=== PATIENT | male | born 1950 | race African-American/Black ===

== ENCOUNTER 2016-10-06 08:42 | Emergency (ER) ==
--- NOTE | 2016-10-06 10:08 | PROVIDER DOCUMENTATION ---
HPI-Male Problem - General Source: patient - History of Present Illness-Male Location of Complaint: reports: suprapubic, right flank Radiation: reports: right flank Quality of Pain: reports: cramping, fullness Severity in ED: reports: mild Onset/Duration: reports: 4-6 hours ago Timing: reports: still present Urinary Symptoms: reports: dribbling, retention, low back pain Similar Symptoms Previously?: No Recently seen or treated by another doctor?: No <Stephanie Donovan - Last Filed: 10/06/16 11:40> <Shiv Bustillos I - Last Filed: 10/06/16 12:18> - General Chief Complaint: UTI Symptoms Stated Complaint: LOWER ABD PAIN Time Seen by Provider: 10/06/16 10:00 Allergies/Adverse Reactions: Patient Allergies Allergy/AdvReac Type Severity Reaction Status Date / Time No Known Allergies Allergy Verified 10/06/16 09:17 Home Medications: Home Medication List Medication Instructions Recorded Confirmed Last Taken Type Aspirin [Aspirin EC] 81 mg PO QAM 03/15/16 10/06/16 10/05/16 History Glimepiride 2 mg PO DAILY 03/15/16 10/06/16 10/05/16 History Losartan Potassium 100 mg PO DAILY 03/15/16 10/06/16 10/05/16 History Magnesium Oxide 400 mg PO DAILY 03/15/16 10/06/16 10/05/16 History Metformin [Glucophage] 500 mg PO BID CC 03/15/16 10/06/16 10/05/16 History Metoprolol Succinate 25 mg PO DAILY 03/15/16 10/06/16 10/05/16 History Pioglitazone HCl 15 mg PO DAILY 03/15/16 10/06/16 10/05/16 History Hydrocodone/APAP 7.5 mg/325 mg 1 each PO Q6H PRN PRN #10 tablet 10/06/16 Unknown Rx [[place]-7.5] Sulfamethoxazole/Trimethoprim 1 each PO BID #42 tablet 10/06/16 Unknown Rx [Bactrim Ds Tablet] - History of Present Illness-Male Nature of Presenting Problem: Pt is a 66 yom who came to the ED with a cc of urinary retention. Pt reports he woke up last night doubled over with abdominal pain and a feeling he had to urinate, when he did only a few drops came out and it burned when he peed. Pt reports he has a hx of kidney stones. (Stephanie Donvoan) Review of Systems - Adult - REVIEW OF SYSTEMS - ADULT Constitutional: denies: chills, fever Eyes: denies: decreased vision, double vision Ears, Nose, Mouth & Throat: reports: no symptoms reported Cardiovascular: reports: no symptoms reported Respiratory: reports: no symptoms reported Gastrointestinal: reports: abdominal pain. denies: diarrhea, nausea, vomiting Genitourinary: reports: flank pain (right), urinary retention. denies: hematuria, hesitency Musculoskeletal: reports: no symptoms reported Integumentary: reports: no symptoms reported Neurological: denies: numbness, paresthesia Psychiatric: reports: no symptoms reported Endocrine: reports: no symptoms reported Hematologic/Lymphatic: reports: no symptoms reported Allergic/Immunologic: reports: no symptoms reported All Other Systems: Reviewed and Negative <Stephanie Donovan - Last Filed: 10/06/16 11:40> Past History - Adult - PAST MEDICAL HISTORY-ADULT Review of Records: reports: Old Records Reviewed, Nursing Assessment Review Major Childhood Illnesses: reports: denies history Cardiovascular: reports: HTN Respiratory: reports: denies history Gastrointestinal: reports: denies history Obstetrical/Gynecological: reports: denies history Genitourinary: reports: kidney stones Musculoskeletal: reports: denies history Neurological: reports: denies history Endocrine/Immune: reports: Diabetes Other Conditions: reports: denies history - PRIOR SURGERIES/PROCEDURES Surgical/Procedure History: reports: other (heart cath ) - IMMUNIZATION STATUS Childhood Immunizations: See Nurse Assessment Flu Vaccine: See Nurse Assessment - FAMILY HISTORY Family History: reviewed, not pertinent <Stephanie Donovan - Last Filed: 10/06/16 11:40> Physical Exam-General - PHYSICAL EXAM-ADULT Initial Vital Signs Reviewed: Yes - CONSTITUTIONAL General Appearance: alert, no apparent distress - EYES Eyes: PERRL/EOMI, pink conjunctivae, fundi clear, no AV nicking - HEAD, EARS, NOSE, MOUTH & THROAT HENMT: normocephalic/atraumatic, moist mucous membranes, normal ENT inspection, TMs normal, pharynx normal - NECK Neck: non-tender - RESPIRATORY Respiratory: chest non-tender, lungs clear, normal breath sounds, no pleuratic chest pain, no respiratory distress, no accessory muscle use - CARDIOVASCULAR Cardiovascular: normal peripheral pulses, regular rate, rhythm, no edema, no gallop, no JVD, no murmur - GASTROINTESTINAL (ABDOMEN) Abdominal Exam: normal bowel sounds, tenderness (suprapubic and right flank) - MUSCULOSKELETAL Back Exam: normal inspection, no CVA tenderness, no vertebral tenderness Extremity: normal range of motion - SKIN Integumentary: normal color, normal turgor - NEUROLOGIC Neurologic: grossly normal - PSYCHIATRIC Psych/Mental Status: normal mood/affect, normal thought content, normal thought process, oriented x 3 <Stephanie Donovan - Last Filed: 10/06/16 11:40> Progress - CT/MRI 1 CT Study: Abdomen (2mm caliceal stone periprostatic stranding, possible prostatitis.) CT Results: Fullness of rt collecting system without apparent ureteral stone <Stephanie Donovan - Last Filed: 10/06/16 11:40> <Shiv Bustillos I - Last Filed: 10/06/16 12:18> - PLAN OF CARE/RESULTS Progress/Plan/Lab Results: Vital Signs - 24 hr 10/06/16 08:53 Temperature 99.9 F H Pulse Rate 114 H Respiratory 20 Rate Blood Pressure 202/84 O2 Sat by Pulse 99 Oximetry Orders Category Date Time Status Saline Loc DIRECTED Care 10/06/16 10:31 Active NPO Diet 10/06/16 10:31 Active RENAL STONE SEARCH [CT] Stat Exams 10/06/16 10:32 Taken AMYLASE [CHEM] Stat Lab 10/06/16 10:45 Received CBC WITH ELECTRONIC DIFF [HEME] Stat Lab 10/06/16 10:45 Completed COMPREHENSIVE METABOLIC PANEL [CHEM] Stat Lab 10/06/16 10:45 Received LIPASE [CHEM] Stat Lab 10/06/16 10:45 Received URINALYSIS W/POSS RFLX CULT [URINALYSIS] Stat Lab 10/06/16 10:30 Completed URINE CULTURE [RM] Routine Lab 10/06/16 11:05 Received 0.9% Sodium Chloride Inj [Ns] 1,000 ml Med 10/06/16 10:32 Discontinued IV 999 mls/hr Hydromorphone [Dilaudid] Med 10/06/16 10:32 Discontinued 1 mg IV NOW ONE Ondansetron [Zofran] Med 10/06/16 10:32 Discontinued 4 mg IV NOW ONE Laboratory Tests 10/06/16 10/06/16 10:30 10:45 WBC 22.87 H RBC 4.04 L Hgb 12.7 L Hct 37.3 L MCV 92.3 MCH 31.4 H MCHC 34.0 RDW Std Deviation 12.2 Plt Count 303 MPV 10.6 H Immature Gran % (Auto) 0.4 Neut % (Auto) 84.8 H Lymph % (Auto) 6.7 L [place] % (Auto) 8.0 Eos % (Auto) 0.0 Baso % (Auto) 0.1 Immature Gran # (Auto) 0.09 H Neut # (Auto) 19.40 H Lymph # (Auto) 1.53 [place] # (Auto) 1.82 H Eos # (Auto) 0.00 Baso # (Auto) 0.03 Urine Source CLEAN CATCH Urine Color YELLOW Urine Turbidity HAZY Urine pH 6.5 Ur Specific [place] 1.023 Urine Protein 200 A Ur Glucose (Stick) 300 A Ur Ketones (Stick) 10 A Urine Blood MODERATE A Urine Nitrite NEGATIVE Urine Bilirubin NEGATIVE Urobilinogen Dipstick NORMAL Urine Leukocytes LARGE A Urine WBC (Auto) TNTC A Urine RBC (Auto) 10-20 A U Epithel Cells (Auto) <10 Urine Bacteria (Auto) 4+ (Stephanie Donovan) Departure <Stephanie Donovan - Last Filed: 10/06/16 11:40> - Departure Time of Disposition Order: 12:13 Certified Medical Emergency: Emergent <Shiv Bustillos I - Last Filed: 10/06/16 12:18> - Departure DIAGNOSIS: Prostatitis, acute Disposition: HOME 01 Condition: Stable Additional Instructions: Please call and make appointment with Dr. Esparza. Prescriptions: Sulfamethoxazole/Trimethoprim [Bactrim Ds Tablet] 1 each PO BID #42 tablet Hydrocodone/APAP 7.5 mg/325 mg [[place]-7.5] 1 each PO Q6H PRN PRN #10 tablet PRN Reason: Pain Referrals: Bhavesh Fountain MD [Primary Care Provider] - Jacob Esparza MD [STAFF PHYSICIAN] - Attestation - Scribe Verification/Attestation Scribe:: Stephanie Donovan Acting as Scribe for:: Shiv Bustillos Scribe documention review:: This chart was documented by a scribe and accurately reflects the service the provider performed and the decisions made by the provider. <Stephanie Donovan - Last Filed: 10/06/16 11:40> Physician Attestation - Physician Attestation I, the provider, attest to the following statement:: Shiv Bustillos Physician documentation Attestation:: This documentation recorded by the scribe accurately reflects the service I personally performed and the decisions made by me. <Shiv Bustillos I - Last Filed: 10/06/16 12:18>
[2016-10-06] MEDS ORDERED: ZOFRAN IV ONE (10:32)
[2016-10-06] MEDS ORDERED: DILAUDID IV ONE (10:32)
[2016-10-06] MEDS ORDERED: NS 1,000 ML IV ONE (10:32)
[2016-10-06 10:55] LABS: URINE MICRO REVIEW NEEDED? NO; URINE SOURCE CLEAN CATCH
[2016-10-06 11:03] LABS: BILIRUBIN URINE NEGATIVE (NEGATIVE); BLOOD URINE MODERATE (NEGATIVE); COLOR YELLOW; GLUCOSE URINE 300 mg/dL (NEGATIVE); LEUKOCYTES URINE LARGE (NEGATIVE); NITRITE URINE NEGATIVE (NEGATIVE); PH URINE 6.5; PROTEIN URINE 200 mg/dL (NEGATIVE); SP GRAVITY URINE 1.023; TURBIDITY URINE HAZY (CLEAR); UROBILINOGEN URINE NORMAL (NORMAL)
[2016-10-06 11:05] LABS: BASO% 0.1 % (0.0-0.8); HEMATOCRIT 37.3 % (42.0-52.0); HEMOGLOBIN 12.7 g/dL (14.0-18.0); IMM GRAN# 0.09 X1000 (0.0-0.04); IMM GRAN% 0.4 % (0.0-0.5); LYMPH# 1.53 X1000 (1.2-3.4); LYMPH% 6.7 % (20.5-51.1); MANUAL DIFF NEEDED? NO; MCH 31.4 PG (27-31); MCV 92.3 FL (81-99); MONO# 1.82 X1000 (0.11-0.59); MPV 10.6 FL (7.4-10.4); NEUT% 84.8 % (42.2-75.2); PLT 303 X1000 (130-400); RBC 4.04 XMIL (4.7-6.1)
[2016-10-06 11:05] LABS: UR EPITHELIAL CELLS <10 /HPF (<10); URINE BACTERIA 4+ /HPF; URINE CULTURE NEEDED? YES; URINE WBC TNTC /HPF (<10)
[2016-10-06 11:43] LABS: AGAP 12; ALBUMIN 3.6 g/dL (3.5-5.0); ALKALINE PHOSPHATASE 64 U/L (32-122); AMYLASE 54 U/L (20-200); BUN 16 mg/dL (8-22); CALCIUM 8.8 mg/dL (8.8-10.2); CHLORIDE 100 mmol/L (98-107); COSMO 279; GOT 36 U/L (10-34); GPT 31 U/L (10-44); LIPASE 8 U/L (13-60); POTASSIUM 4.7 mmol/L (3.5-5.1); SODIUM 136 mmol/L (136-145); TCO2 24 mmol/L (25-35); TOTAL BILIRUBIN 0.74 mg/dL (0.20-1.00); TOTAL PROTEIN 7.2 g/dL (6.3-8.3)
[2016-10-06] MEDS ORDERED: LEVAQUIN 500 MG/D5W 100 ML IV ONE (12:12)
[2016-10-06] MEDS ORDERED: LEVAQUIN 500 MG in NS 100 ML IV ONE (12:19)
[2016-10-06 13:48] VITALS: BP 152/89
--- NOTE | 2016-10-06 14:49 | Diag Imaging Result Document ---
PROCEDURE NAME: RENAL STONE SEARCH - 10/06/2016 CT UROGRAM WITHOUT CONTRAST: FINDINGS: There are calcified granulomata present in the right middle lobe, the lingula, the spleen and liver. There is a 2 mm calculus in the upper pole of the right kidney. There is no evidence of hydronephrosis. There is no evidence of ureterolithiasis. There is some stranding in the fat surrounding the prostate and seminal vesicles. The possibility of prostatitis cannot be excluded. There is no evidence of bowel obstruction. There is no evidence of appendicitis. There is stool in the colon and fluid in the stomach and small bowel. There are no gallstones. IMPRESSION: Nonobstructing right renal stone. No evidence of ureterolithiasis. The possibility of prostatitis cannot be excluded.
== END 2016-10-06 13:57 | disposition home or self-care (01) ==
LOC: ED 08:42
DX: N41.0 Acute prostatitis (principal); R33.9 Retention of urine, unspecified; R10.30 Lower abdominal pain, unspecified; R10.9 Unspecified abdominal pain; I10 Essential (primary) hypertension; Z87.442 Personal history of urinary calculi; E11.9 Type 2 diabetes mellitus without complications; Z79.899 Other long term (current) drug therapy; Z79.82 Long term (current) use of aspirin
CPT/HCPCS: 74176; 80053; 81001; 82150; 83690; 85025; 87077; 87088; 87186; J1170; J2405; J7030